=== PATIENT | female | born 1960 | race Caucasian/White ===

== ENCOUNTER → 2017-08-11 | Outpatient (CLI) | payer BC ==
[~2017-08-11] MED LIST: ASPI-586 PO; ASPIRIN PO; BUPR150T9 PO; L.AC1CAP6 PO; LVT.05T PO; OMEP-10 PO; RANI150T11 PO; SIMV40TA4 PO; SIMVASTATIN PO; VESICARE PO; [UNRECOGNIZED DRUG - OTHER]
--- NOTE | 2017-08-11 19:29 | Diagnostic Imaging Report ---
INDICATION: Twisted right knee yesterday, leg pain when going up stairs. COMPARISON STUDY: None. FINDINGS: There views of the right knee demonstrates normal ossification. No fracture, dislocation or joint effusion is present. IMPRESSION: Negative right knee. Dictated by: Dictated on workstation # [id number]
== END ==
LOC: RAD 18:37
PROVIDERS: ATTEND Physician Assistant
DX: M23.8X1 Other internal derangements of right knee (principal); M79.604 Pain in right leg; X50.1XXA Overexertion from prolonged static or awkward postures, initial encounter
CPT/HCPCS: 73562

== ENCOUNTER 2017-12-22 11:05 | Emergency (ER) | payer BC ==
[~2017-12-22] VITALS: Ht 171.4 cm; Wt 113.4 kg
[2017-12-22] MEDS ORDERED: ASPIRIN 81 MG CHEW (CHILDREN'S ASA) PO ONE (11:15)
--- NOTE | 2017-12-22 11:24 | ED Chest Pain ---
General Stated Complaint: UPPER CHEST PAIN,NECK PAIN Source: patient Exam Limitations: no limitations History of Present Illness Date Seen by Provider: Dec 22, 2017 Time Seen by Provider: 11:18 Initial Comments to ER with reports of upper chest and neck tightness. This began this morning about 10:30 AM while she was at work. 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 Nothing physically strenuous. She's had this sensation once before in 2011 after leaving the dentist's office. She denies any new shortness of breath, states that she is always a bit short of breath. She does smoke less than one half pack of cigarettes per day. She denies any cough or worsening shortness of breath with this. No nausea or diaphoresis. This started at about 10:30 AM and reduced significantly to a level of 2 out of 10 at the time of arrival to ER at about 1110. She does have a history of hyperlipidemia and takes simvastatin. She takes a baby aspirin daily. She checked her blood pressure and found it to be 160/100 which is very high for her. She does not take anything for blood pressure control. She had a full dose aspirin at home prior to arrival. 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 FEEDER: No Allergies and Home Medications Allergies Coded Allergies: Sulfa (Sulfonamide Antibiotics) (Unverified Allergy, Unknown, 02/10/16) Home Medications Aspirin 81 Mg Tablet.dr, 81 MG PO DAILY, (Reported) Bupropion HCl 150 Mg Tablet.er, 150 MG PO DAILY, (Reported) Levothyroxine Sodium 50 Mcg Tablet, 1 EACH PO DAILY, (Reported) Loratadine 10 Mg Tablet, 10 MG PO DAILY, (Reported) Ranitidine HCl 150 Mg Tablet, 150 MG PO NEEDED, (Reported) Simvastatin 40 Mg Tablet, 40 MG PO DAILY, (Reported) Patient Home Medication List Home Medication List Reviewed: Yes Review of Systems Constitutional: see HPI EENTM: No Symptoms Reported Respiratory: No Symptoms Reported; Denies Cough, Denies Orthopnea, Denies Shortness of Air, Denies SOA With Exertion, Denies SOA at Rest Cardiovascular: See HPI, Chest Pain; Denies Irregular Heart Rate, Denies Lightheadedness Gastrointestinal: See HPI Genitourinary: No Symptoms Reported Musculoskeletal: no symptoms reported Psychiatric/Neurological: No Symptoms Reported Endocrine: No Symptoms Reported Hematologic/Lymphatic: No Symptoms Reported Past Ncizcjm-Uvvjfq-Zmdjak Hx Patient Social History Type Used: Cigarettes Recent Foreign Travel: No Contact w/Someone Who Travel: No Physical Exam Vital Signs Vital Signs - First Documented 12/22/17 12/22/17 11:13 11:15 Temp 98.6 Pulse 102 Resp 20 B/P (MAP) 157/102 (120) Pulse Ox 94 O2 Delivery Room Air Capillary Refill : Height, Weight, BMI Height: 5'7.00" Weight: 247lbs.0.0oz.[id number]; 38.7 BMI Method: General Appearance: No Apparent Distress, WD/WN, Anxious HEENT: PERRL/EOMI, TMs Normal Neck: Full Range of Motion, Normal Inspection Respiratory: Lungs Clear, Normal Breath Sounds, No Accessory Muscle Use, No Respiratory Distress Cardiovascular: Normal Peripheral Pulses, Tachycardia Gastrointestinal: Normal Bowel Sounds, Non Tender, Soft Extremity: Normal Capillary Refill, Normal Inspection Neurologic/Psychiatric: Alert, Oriented x3, No Motor/Sensory Deficits Skin: Normal Color, Warm/Dry Progress/Results/Core Measures Results/Orders Lab Results Laboratory Tests Test 12/22/17 11:31 12/22/17 14:30 Range/Units White Blood Count 8.0 4.3-11.0 10^3/uL Red Blood Count 4.76 4.35-5.85 10^6/uL Hemoglobin 14.8 11.5-16.0 G/DL Hematocrit 42 35-52 % Mean Corpuscular Volume 89 80-99 FL Mean Corpuscular Hemoglobin 31 25-34 PG Mean Corpuscular Hemoglobin Concent 35 32-36 G/DL Red Cell Distribution Width 13.3 10.0-14.5 % Platelet Count 289 130-400 10^3/uL Mean Platelet Volume 10.7 H 7.4-10.4 FL Neutrophils (%) (Auto) 60 42-75 % Lymphocytes (%) (Auto) 31 12-44 % Monocytes (%) (Auto) 7 0-12 % Eosinophils (%) (Auto) 2 0-10 % Basophils (%) (Auto) 1 0-10 % Neutrophils # (Auto) 4.8 1.8-7.8 X 10^3 Lymphocytes # (Auto) 2.5 1.0-4.0 X 10^3 Monocytes # (Auto) 0.6 0.0-1.0 X 10^3 Eosinophils # (Auto) 0.1 0.0-0.3 10^3/uL Basophils # (Auto) 0.0 0.0-0.1 10^3/uL Prothrombin Time 12.2 12.2-14.7 SEC INR Comment 0.9 0.8-1.4 Activated Partial Thromboplast Time 30 24-35 SEC D-Dimer 0.29 0.00-0.49 UG/ML Sodium Level 140 135-145 MMOL/L Potassium Level 3.9 3.6-5.0 MMOL/L Chloride Level 109 H 98-107 MMOL/L Carbon Dioxide Level 21 21-32 MMOL/L Anion Gap 10 5-14 MMOL/L Blood Urea Nitrogen 14 7-18 MG/DL Creatinine 0.76 0.60-1.30 MG/DL Estimat Glomerular Filtration Rate > 60 BUN/Creatinine Ratio 18 Glucose Level 99 70-105 MG/DL Calcium Level 9.5 8.5-10.1 MG/DL Magnesium Level 2.2 1.8-2.4 MG/DL Total Bilirubin 0.6 0.1-1.0 MG/DL Aspartate Amino Transf (AST/SGOT) 20 5-34 U/L Alanine Aminotransferase (ALT/SGPT) 23 0-55 U/L Alkaline Phosphatase 63 40-136 U/L Myoglobin 23.6 10.0-92.0 NG/ML Troponin I < 0.30 <0.30 NG/ML B-Type Natriuretic Peptide 16.6 <100.0 PG/ML Total Protein 7.4 6.4-8.2 GM/DL Albumin 4.5 3.2-4.5 GM/DL My Orders Orders - ARAVIND CASEY FIRE PILOT Cbc With Automated Diff (12/22/17 11:08) Magnesium (12/22/17 11:08) Chest 1 View, Ap/Pa Only (12/22/17 11:08) Ekg Tracing (12/22/17 11:08) Cardiac Profile 1 (12/22/17 11:08) Comprehensive Metabolic Panel (12/22/17 11:08) Myoglobin Serum (12/22/17 11:08) Protime With Inr (12/22/17 11:08) Partial Thromboplastin Time (12/22/17 11:08) O2 (12/22/17 11:08) Monitor-Rhythm Ecg Trace Only (12/22/17 11:08) Lipid Panel (12/23/17 06:00) Aspirin Chewable Tablet (Baby Aspirin Ch (12/22/17 11:15) Saline Lock/Iv-Start (12/22/17 11:08) BNP (12/22/17 11:08) Fibrin Degradation Products (12/22/17 11:48) Troponin I (12/22/17 14:17) Ekg Tracing (12/22/17 14:22) Vital Signs/I&O 12/22/17 12/22/17 11:13 11:15 Temp 98.6 Pulse 102 Resp 20 B/P (MAP) 157/102 (120) Pulse Ox 94 94 O2 Delivery Room Air Room Air Diagnostic Imaging Diagonstic Imaging: Xray Plain Films/CT/US/NM/MRI: chest Comments NAME: JOSE L ARDON MED REC#: [id number] PT STATUS: REG ER : 1960 PHYSICIAN: ARAVIND CASEY APRN ADMIT DATE: 12/22/17/ER Draft Date of Exam:12/22/17 CHEST 1 VIEW, AP/PA ONLY Portable erect AP chest at 1143 hours. INDICATION: Chest pain. FINDINGS: The heart size is within normal limits and stable when compared to 08/28/14. The lungs are clear. There is still no sign of failure, pneumonia or pleural effusion. Mediastinum is not widened. The osseous structures are intact. IMPRESSION: There is no evidence for active disease. Dictated on workstation # [id number] Dict: 12/22/17 1155 Trans: 12/22/17 1201 [id number] Interpreted by: FRANCK MCCARTHY MD Electronically signed by: Departure Communication (Admissions) 1231-EKG was obtained at 1118. No ST segment changes, no ectopy. Sinus rhythm with rate of 87. Normal intervals. At this time, 1231, her pain is completely gone. I'll plan to keep her here in the ER, repeat a troponin at the 4 hour zena which would be 1430, if troponin still negative will discharge home for additional workup in the outpatient setting. Impression Primary Impression: Chest pain Qualified Codes: R07.9 - Chest pain, unspecified Disposition: 01 HOME, SELF-CARE Condition: Stable Departure-Patient Inst. Decision time for Depature: 12:32 Referrals: ELENA CANALES MD (PCP/Family) Primary Care Physician Patient Instructions: Chest Pain (DC) Add. Discharge Instructions: 1. Call Dr. Canales's office later today or tomorrow to make an appointment to be seen either tomorrow or next week. Return to ER for any concerns. Copy Copies To 1: ELEAN CANALES MD, PETER J APRN Dec 22, 2017 11:23
[2017-12-22 11:40] LABS: BASOPHILS % (AUTO) 1 % (0-10); EOSINOPHILS # (AUTO) 0.1 10^3/uL (0.0-0.3); EOSINOPHILS % (AUTO) 2 % (0-10); HEMATOCRIT 42 % (35-52); HEMOGLOBIN 14.8 G/DL (11.5-16.0); LYMPHOCYTES # (AUTO) 2.5 X 10^3 (1.0-4.0); LYMPHOCYTES % (AUTO) 31 % (12-44); MEAN CORPUSCULAR HEMOGLOBIN 31 PG (25-34); MEAN CORPUSCULAR HGB CONC 35 G/DL (32-36); MEAN CORPUSCULAR VOLUME 89 FL (80-99); MEAN PLATELET VOLUME 10.7 FL (7.4-10.4); MONOCYTES # (AUTO) 0.6 X 10^3 (0.0-1.0); MONOCYTES % (AUTO) 7 % (0-12); NEUTROPHILS # (AUTO) 4.8 X 10^3 (1.8-7.8); NEUTROPHILS % (AUTO) 60 % (42-75); PLATELET COUNT 289 10^3/uL (130-400); RED BLOOD COUNT 4.76 10^6/uL (4.35-5.85); RED CELL DISTRIBUTION WIDTH 13.3 % (10.0-14.5)
[2017-12-22 11:51] LABS: INR 0.9 (0.8-1.4); PROTHROMBIN TIME PATIENT 12.2 SEC (12.2-14.7)
[2017-12-22] MEDS ORDERED: LORA10TA7 PO (11:56)
[2017-12-22 11:58] LABS: ALANINE AMINOTRANSFERASE 23 U/L (0-55); ALBUMIN 4.5 GM/DL (3.2-4.5); ALKALINE PHOSPHATASE 63 U/L (40-136); BILIRUBIN,TOTAL 0.6 MG/DL (0.1-1.0); BUN/CREATININE RATIO 18; CALCIUM 9.5 MG/DL (8.5-10.1); CARBON DIOXIDE 21 MMOL/L (21-32); CHLORIDE 109 MMOL/L (98-107); CREATININE SERUM 0.76 MG/DL (0.60-1.30); GFR ESTIMATED > 60; GLUCOSE 99 MG/DL (70-105); MAGNESIUM 2.2 MG/DL (1.8-2.4); POTASSIUM 3.9 MMOL/L (3.6-5.0); SODIUM 140 MMOL/L (135-145); TOTAL PROTEIN 7.4 GM/DL (6.4-8.2)
--- NOTE | 2017-12-22 12:02 | Diagnostic Imaging Report ---
Portable erect AP chest at 1143 hours. INDICATION: Chest pain. FINDINGS: The heart size is within normal limits and stable when compared to 08/28/14. The lungs are clear. There is still no sign of failure, pneumonia or pleural effusion. Mediastinum is not widened. The osseous structures are intact. IMPRESSION: There is no evidence for active disease. Dictated by: Dictated on workstation # [id number]
[2017-12-22 12:05] LABS: MYOGLOBIN SERUM 23.6 NG/ML (10.0-92.0)
[2017-12-22 15:22] VITALS: BP 119/77
== END 2017-12-22 15:22 | disposition home or self-care (01) ==
LOC: EDUNIT# 11:05 → ER 11:07
DX: R07.89 Other chest pain (principal); E78.5 Hyperlipidemia, unspecified; Z88.2 Allergy status to sulfonamides; Z79.82 Long term (current) use of aspirin
CPT/HCPCS: 36415; 71045; 80053; 83735; 83874; 83880; 84484; 85025; 85379; 85610; 85730; 93005; 93041

== ENCOUNTER → 2018-02-20 | Outpatient (CLI) | payer BC ==
[~2018-02-20] MED LIST changes: +BUPR150T7 PO; +GLUC100016 PO; +LEVO50TA6 PO; +LORA-973 PO; +LORA10TA7 PO; +METO-387 PO
--- NOTE | 2018-02-20 17:38 | Diagnostic Imaging Report ---
INDICATION: Routine screening. Comparison is made with prior mammogram from 02/10/2016 and 01/03/2015. 2-D and 3-D bilateral screening mammography was performed with CAD. The current study was also evaluated with a Computer Aided Detection (CAD) system. FINDINGS: Scattered fibroglandular densities are identified bilaterally. Nodular densities in both breasts are stable. No spiculated mass or malignant-appearing microcalcifications are seen. The axillae are unremarkable. IMPRESSION: No mammographic features suspicious for malignancy are identified. ACR BI-RADS Category 2: Benign findings. Result letter will be mailed to the patient. Note: At least 10% of breast cancer is not imaged by mammography. Dictated by: Dictated on workstation # [id number]
== END ==
LOC: RAD 08:08
PROVIDERS: ATTEND Internal Medicine
DX: Z12.31 Encounter for screening mammogram for malignant neoplasm of breast (principal)
CPT/HCPCS: 77067

== ENCOUNTER → 2019-03-08 | Outpatient (CLI) | payer BC ==
--- NOTE | 2019-03-08 09:10 | Diagnostic Imaging Report ---
INDICATION: Routine screening. COMPARISON: 02/20/2018 and 02/10/2016. TECHNIQUE: 2D and 3D bilateral screening mammography was performed with CAD. FINDINGS: Scattered fibroglandular densities are identified bilaterally. Bilateral benign-appearing circumscribed nodules are stable. No new mass or malignant appearing microcalcifications are seen. The axillae are unremarkable. IMPRESSION: No mammographic features suspicious for malignancy are identified. ACR BI-RADS Category 2: Benign findings. Result letter will be mailed to the patient. Note: At least 10% of breast cancer is not imaged by mammography. Dictated by: Dictated on workstation # [id number]
== END ==
LOC: RAD 07:54
PROVIDERS: ATTEND Internal Medicine
DX: Z12.31 Encounter for screening mammogram for malignant neoplasm of breast (principal)
CPT/HCPCS: 77067

== ENCOUNTER → 2019-07-11 | Outpatient (CLI) | payer BC ==
[~2019-07-11] MED LIST changes: -METO-387 PO; +MTP25TSR PO; +SIMV40TA25 PO; -SIMV40TA4 PO
--- NOTE | 2019-07-11 09:48 | Diagnostic Imaging Report ---
INDICATION: Knee pain COMPARISON: 08/11/2017 TECHNIQUE: Six radiographs of the bilateral knees dated 07/11/2019. FINDINGS: No acute fracture or dislocation. No destructive osseous process. Joint spaces are well-maintained. No significant osteophytosis. No joint effusion. No suspicious radiopaque foreign body. IMPRESSION: Unremarkable examination for age without acute osseous abnormality or significant degenerative changes. Dictated by: Dictated on workstation # [id number]
== END ==
LOC: RAD 09:19
PROVIDERS: ATTEND Internal Medicine
DX: M25.561 Pain in right knee (principal); M25.562 Pain in left knee